=== PATIENT | female | born 1980 | race Caucasian/White ===

== ENCOUNTER 2024-11-08 22:21 | Emergency (ER) | payer OTHER, SELFPAY ==
[2024-11-08 22:30] VITALS: BP 156/107; PULSE 80; TEMP 36.7; O2SAT 96; BMI 25.7
--- NOTE | 2024-11-08 22:51 | ED_ITS ---
HPI HPI - Back Pain/Injury General Chief Complaint: Back Pain/Injury Stated Complaint: lower back pain Time Seen by Provider: 11/08/24 22:32 Source: patient Mode of arrival: walk-in Limitations: no limitations History of Present Illness HPI Narrative: Coming down steps a few days ago the patient suddenly felt her back tighten and pain emanate from the sacrum up the lumbar spine and into the right lower back. No bowel or bladder dysfunction since then and no weakness or paralysis in the LEs. She did not take anything at home for the pain. She went to [facility] and had two shots of pain meds and was discharged home without any additional prescriptions. She went to work today and after lifting and moving, the back pain worsened. Related Data Previous Rx's ?Medication ?Instructions ?Recorded methocarbamol 750 mg tablet 750 mg PO Q6H PRN pain #30 tabs 11/08/24 nabumetone 750 mg tablet 750 mg PO BID PRN pain #14 tabs 11/08/24 Allergies Allergy/AdvReac Type Severity Reaction Status Date / Time No Known Drug Allergies Allergy Verified 11/08/24 22:36 Opioid HPI Opioid Management Most Recent Opioid Data: No Data to Display PFSH PFSH Social History Little interest or pleasure in doing things: not at all Feeling down, depressed, or hopeless: not at all Exam Narrative Exam Narrative: General: Alert, no acute distress, patient resting comfortably Skin: warm, intact, no pallor noted Head: Normocephalic, atraumatic Eye: Normal conjunctiva Respiratory: No acute distress Abdomen: Normal bowel sounds, soft, nontender, no masses detected. No rebound, guarding, or rigidity noted. Back: inspection of the back shows no obvious deformity, no swelling, no ecchymosis, contusion, abrasion, swelling, erythema, fluctuance or induration. Tenderness noted to right paralumbar soft tissue. Straight leg raise on left is positive. Straight leg raise on right is negative. No CVA tenderness noted bilaterally. Musculoskeletal: No deformity noted to bilateral lower extremities. no cyanosis or mottling noted. normal pulses at DP and PT 2+ bilaterally and symmetrically. Normal 5/5 strength at ankles with dorsiflexion and plantar flexion. Patient is able to ambulate. Normal sensation noted to both lower extremities. Neurological: AAOx4, normal sensory and motor observed. L5-S1 reflexes intact symmetrically. DTR 2+ at patellar bilaterally. Psychiatric: Cooperative and interactive. Constitutional Vital Signs, click to edit/add: Last Vital Signs Temp 98.1 F 11/08/24 22:30 Pulse 80 11/08/24 22:30 Resp 18 11/08/24 22:30 BP 156/107 H 11/08/24 22:30 Pulse Ox 96 11/08/24 22:30 O2 Del Method Room Air 11/08/24 22:30 Course Vital Signs Vital signs: Vital Signs Temperature 98.1 F 11/08/24 22:30 Pulse Rate 80 11/08/24 22:30 Respiratory Rate 18 11/08/24 22:30 Blood Pressure 156/107 H 11/08/24 22:30 Pulse Oximetry 96 11/08/24 22:30 Oxygen Delivery Method Room Air 11/08/24 22:30 Temperature 98.1 F 11/08/24 22:30 Pulse Rate 80 11/08/24 22:30 Respiratory Rate 18 11/08/24 22:30 Blood Pressure 156/107 H 11/08/24 22:30 Pulse Oximetry 96 11/08/24 22:30 Oxygen Delivery Method Room Air 11/08/24 22:30 MDM - Back Pain/Injury MDM Narrative Medical decision making narrative: Nothing on history or examination to suggest acute cauda equina syndrome. Exam is consistent with muscle strain of the right paralumbar soft tissue. Patient was given IM Solu-Medrol and IM Norflex and then discharged home with prescription sent electronically to her pharmacy of choice for Relafen and Robaxin. She was also given a work excuse to be off for the next couple of days to heal. Back exercises also given as part of her discharge packet information. Discharge Plan Discharge Chief Complaint: Back Pain/Injury Clinical Impression: Strain of lumbar region, Acute lumbar back pain Patient Disposition: Home, Self-Care Time of Disposition Decision: 22:55 Prescriptions / Home Meds: New nabumetone 750 mg tablet 750 mg PO BID PRN (Reason: pain) Qty: 14 0RF methocarbamol 750 mg tablet 750 mg PO Q6H PRN (Reason: pain) Qty: 30 0RF Print Language: Romanian Instructions: Low Back Strain (ED), Lower Back Exercises (ED) Referrals: Physician,Non-Staff, MD [Primary Care Provider] - 1 week
[2024-11-08] MEDS: ORPHENADRINE 60 MG/ 2 ML VIAL IM (23:11)
[2024-11-08] MEDS: METHYLPREDNISOLONE SOD SUCC PF 125 MG/2 ML VIAL IM (23:11)
== END 2024-11-08 23:21 | disposition home or self-care (01) ==
PROVIDERS: Emergency Provider Emergency Medicine
DX: S39.012A Strain of muscle, fascia and tendon of lower back, initial encounter (principal); X58.XXXA Exposure to other specified factors, initial encounter; M54.50 Low back pain, unspecified
CPT/HCPCS: 96372; 99284; J2360; J2919